=== PATIENT | male | born 1965 | race Hispanic/Latino ===

== ENCOUNTER 2021-05-14 15:43 | Inpatient (IN) | payer BC ==
[~2021-05-14] VITALS: Ht 177.8 cm; Wt 191.4 kg
[2021-05-14 16:01] LABS: BASOPHILS % (AUTO) 0.2 % (0.0-5.0); EOSINOPHILS % (AUTO) 1.5 % (0.0-8.0); HEMATOCRIT 40.6 % (42-54); LYMPHOCYTES % (AUTO) 6.5 % (21.0-51.0); MEAN CORPUSCULAR HEMOGLOBIN 29.4 pg (27.0-33.0); MEAN CORPUSCULAR VOLUME 86.4 fL (79-99); MONOCYTES % (AUTO) 5.3 % (3.0-13.0); NEUTROPHILS % (AUTO) 86.1 % (40.0-77.0); PLATELET COUNT (AUTO) 268 K/uL (130-400); RED CELL DISTRIBUTION WIDTH 13.3 % (11.0-15.5); WHITE BLOOD COUNT (AUTO) 16.2 K/uL (4.8-10.8)
[2021-05-14 16:14] LABS: CREATININE 0.9 mg/dL (0.5-1.5); POTASSIUM 3.8 mmol/L (3.5-5.1)
[2021-05-14 16:24] LABS: ALBUMIN 3.5 g/dL (3.5-5.0); BILIRUBIN,TOTAL 0.6 mg/dL (0.2-1.0)
[2021-05-14 16:28] LABS: B-TYPE NATRIURETIC PEPTIDE 95 pg/mL (0-100)
[2021-05-14] MEDS ORDERED: ASPIRIN 81MG CHEW TAB PO ONE (21:00)
[2021-05-14] MEDS ORDERED: ONDANSETRON 4MG INJ IV PRN (21:00)
[2021-05-14] MEDS ORDERED: NITROGLYCERIN 0.4 MG SL TAB SL PRN (21:00)
[2021-05-14] MEDS ORDERED: GUAIFENESIN-DM 200/20 MG 10 ML PO PRN (21:00)
[2021-05-14] MEDS ORDERED: ACETAMINOPHEN 325 MG TAB PO PRN (21:00)
[2021-05-14] MEDS ORDERED: LACTATED RINGERS 1000ML 1,000 ML IV SCH (21:00)
[2021-05-14] MEDS ORDERED: AZITHROMYCIN 500MG VIAL IVPB SCH (21:00)
[2021-05-14 21:05] LABS: APPEARANCE,URINE Clear (CLEAR); BILIRUBIN,URINE Negative (NEGATIVE); COLOR,URINE Yellow (YELLOW); GLUCOSE, URINE (UA) Negative (NEGATIVE); KETONES,URINE Trace mg/dL (NEGATIVE); LEUKOCYTE ESTERASE ,URINE Negative (NEGATIVE); NITRATE,URINE Negative (NEGATIVE); OCCULT BLOOD,URINE Negative (NEGATIVE); PROTEIN,URINE Negative (NEGATIVE)
[2021-05-14] MEDS ORDERED: AZITHROMYCIN 500MG+NS 250ML 250 ML IV ONE (21:44)
[2021-05-14] MEDS: CEFTRIAXONE 1G VIAL IV SCH (22:04)
[2021-05-14] MEDS: FAMOTIDINE 20MG TAB PO SCH (22:05)
[2021-05-14] MEDS: METOPROLOL TARTRATE 25 MG TAB PO SCH (22:05)
[2021-05-14] MEDS: 0.9% NACL 250ML IVPB SCH (22:06)
[2021-05-14] MEDS ORDERED: IPRATROPIUM/ALBUTEROL SULFATE 3 ML SOLUTION IH ONE ×2 (22:14→22:30)
[2021-05-14 22:18] LABS: BASOPHILS % (AUTO) 0.1 % (0.0-5.0); EOSINOPHILS % (AUTO) 0.1 % (0.0-8.0); LYMPHOCYTES % (AUTO) 6.1 % (21.0-51.0); MEAN CORPUSCULAR HGB CONC 33.3 g/dL (32.0-36.0); MONOCYTES % (AUTO) 2.8 % (3.0-13.0); NEUTROPHILS % (AUTO) 90.4 % (40.0-77.0); PLATELET COUNT (AUTO) 264 K/uL (130-400); RED BLOOD CELL COUNT(AUTO) 4.83 MIL/uL (4.50-6.20); RED CELL DISTRIBUTION WIDTH 13.5 % (11.0-15.5); WHITE BLOOD COUNT (AUTO) 14.1 K/uL (4.8-10.8)
[2021-05-14 22:29] LABS: PROTHROMBIN TIME 10.9 SEC (9.6-11.6)
[2021-05-14 22:30] LABS: PARTIAL THROMBOPLASTIN TIME 30.2 SEC (26.3-35.5)
[2021-05-15] MEDS: IPRATROPIUM/ALBUTEROL SULFATE 3 ML SOLUTION IH SCH ×5 (00:52→23:10)
[2021-05-15] MEDS: CEFTRIAXONE 1G VIAL IV SCH ×2 (00:52→22:30)
[2021-05-15 07:53] LABS: BASOPHILS % (AUTO) 0.1 % (0.0-5.0); EOSINOPHILS % (AUTO) 0.5 % (0.0-8.0); HEMATOCRIT 40.1 % (42-54); LYMPHOCYTES % (AUTO) 11.8 % (21.0-51.0); MEAN CORPUSCULAR HEMOGLOBIN 28.9 pg (27.0-33.0); MEAN CORPUSCULAR HGB CONC 33.4 g/dL (32.0-36.0); MEAN CORPUSCULAR VOLUME 86.6 fL (79-99); MONOCYTES % (AUTO) 7.7 % (3.0-13.0); NEUTROPHILS % (AUTO) 79.4 % (40.0-77.0); PLATELET COUNT (AUTO) 260 K/uL (130-400); RED BLOOD CELL COUNT(AUTO) 4.63 MIL/uL (4.50-6.20); RED CELL DISTRIBUTION WIDTH 13.6 % (11.0-15.5); WHITE BLOOD COUNT (AUTO) 12.7 K/uL (4.8-10.8)
[2021-05-15 08:08] LABS: CREATININE 0.9 mg/dL (0.5-1.5); MAGNESIUM 2.1 mg/dL (1.80-2.40); PHOSPHORUS 3.7 mg/dL (2.5-4.9); POTASSIUM 4.2 mmol/L (3.5-5.1)
[2021-05-15] MEDS: METOPROLOL TARTRATE 25 MG TAB PO SCH (09:20)
[2021-05-15] MEDS: FAMOTIDINE 20MG TAB PO SCH ×2 (09:20→22:30)
[2021-05-15] MEDS: ASPIRIN 81 MG EC TAB PO SCH (09:20)
[2021-05-15] MEDS: ENOXAPARIN SODIUM 40 MG/0.4 ML SYRINGE SQ SCH (09:20)
[2021-05-15 09:45] VITALS: BP 124/65
[2021-05-15 11:59] VITALS: BP 137/72
[2021-05-15 16:10] VITALS: BP 140/59
[2021-05-15] MEDS: SOLU-MEDROL 40MG VIAL IVP SCH (17:49)
[2021-05-15] MEDS: BUDESONIDE 0.5 MG/2 ML INH IH SCH (18:53)
[2021-05-15 19:00] VITALS: BP 167/74
[2021-05-15] MEDS ORDERED: BUDESONIDE 0.5 MG/2 ML INH IH SCH (21:00)
[2021-05-15] MEDS ORDERED: AZITHROMYCIN 500MG+NS 250ML IV SCH (21:00)
[2021-05-15] MEDS: 0.9% NACL 250ML IVPB SCH (22:30)
[2021-05-16] VITALS: BP 131/63
[2021-05-16] MEDS: SOLU-MEDROL 40MG VIAL IVP SCH ×2 (02:05→10:53)
[2021-05-16 03:55] LABS: BASOPHILS % (AUTO) 0.1 % (0.0-5.0); EOSINOPHILS % (AUTO) 0.1 % (0.0-8.0); HEMATOCRIT 39.1 % (42-54); LYMPHOCYTES % (AUTO) 8.7 % (21.0-51.0); MEAN CORPUSCULAR HGB CONC 33.2 g/dL (32.0-36.0); MEAN CORPUSCULAR VOLUME 87.1 fL (79-99); MONOCYTES % (AUTO) 3.2 % (3.0-13.0); NEUTROPHILS % (AUTO) 86.8 % (40.0-77.0); PLATELET COUNT (AUTO) 278 K/uL (130-400); RED BLOOD CELL COUNT(AUTO) 4.49 MIL/uL (4.50-6.20); RED CELL DISTRIBUTION WIDTH 13.7 % (11.0-15.5)
[2021-05-16 04:00] VITALS: BP 130/62
[2021-05-16 04:20] LABS: CREATININE 0.9 mg/dL (0.5-1.5); POTASSIUM 4.4 mmol/L (3.5-5.1)
[2021-05-16 07:05] VITALS: BP 165/91
[2021-05-16] MEDS: IPRATROPIUM/ALBUTEROL SULFATE 3 ML SOLUTION IH SCH (07:39)
[2021-05-16] MEDS: BUDESONIDE 0.5 MG/2 ML INH IH SCH (07:41)
[2021-05-16] MEDS ORDERED: AMLODIPINE 5 MG TAB PO ONE (10:00)
[2021-05-16 10:50] VITALS: BP 142/73
[2021-05-16] MEDS: ENOXAPARIN SODIUM 40 MG/0.4 ML SYRINGE SQ SCH (10:52)
[2021-05-16] MEDS: FAMOTIDINE 20MG TAB PO SCH (10:53)
[2021-05-16] MEDS: ASPIRIN 81 MG EC TAB PO SCH (10:54)
[2021-05-16 15:15] VITALS: BP 162/68
[2021-05-16] MEDS ORDERED: FLUT1BLS IH (15:22)
[2021-05-16] MEDS ORDERED: AMLO-257 PO (15:22)
[2021-05-16] MEDS ORDERED: PRED20TA3 PO (15:22)
[2021-05-16] MEDS ORDERED: ALBU8.5H8 IH (15:22)
[2021-05-16] MEDS ORDERED: CEFD300C3 PO (15:22)
[2021-05-16] MEDS ORDERED: PREDNISONE 20 MG TABLET PO SCH (15:30)
== END 2021-05-16 18:05 | disposition home or self-care (01) | DRG 193 ==
LOC: EDH 15:43 → EDHIP 21:05 → 4AH 05-15 09:57
PROVIDERS: ADMIT Internal Medicine; ATTEND Internal Medicine
DX: J18.9 Pneumonia, unspecified organism (principal); J96.01 Acute respiratory failure with hypoxia; Z68.44 Body mass index [BMI] 60.0-69.9, adult; D72.828 Other elevated white blood cell count; E66.01 Morbid (severe) obesity due to excess calories; Z20.822 Contact with and (suspected) exposure to COVID-19; I10 Essential (primary) hypertension; E78.00 Pure hypercholesterolemia, unspecified; E78.5 Hyperlipidemia, unspecified; I49.3 Ventricular premature depolarization; Z98.84 Bariatric surgery status
CPT/HCPCS: 36415; 71045; 80048; 80053; 81003; 82550; 83605; 83735; 83880; 84100; 84145; 84484; 85025; 85610; 85730; 86738; 87040; 87449; 87635; 87804; 87880; 93005; 94640; 94664; C9803; G0378; J0456; J0696; J1650; J2920; J7050